=== PATIENT | female | born 1955 | race Caucasian/White ===

== ENCOUNTER 2022-08-09 13:22 | Emergency (ER) | payer OTHER, MEDICARE ==
[2022-08-09] MEDS ORDERED: DIPH,PERTUS(ACELL)TETVAC-LF 0.5 ML VIAL IM ONE (13:30)
[2022-08-09] MEDS ORDERED: TOPICAL SKIN ADHESIVE 1 EACH AMP TOPICAL ONE (13:31)
--- NOTE | 2022-08-09 13:33 | ED ---
General Adult HPI - General Stated complaint: Fall, Head Injury Time Seen by Provider: 08/09/22 13:24 Source: patient, EMS, RN notes reviewed Mode of arrival: EMS Limitations: no limitations - History of Present Illness Initial comments: Patient is a pleasant 66-year-old female presenting to the emergency department following fall. Patient was cleaning water in her bathroom and she slipped and fell. Patient did strike the right side of her face onto the tub. No loss of consciousness. No significant headache. 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 No weakness. No other area of injury or concern. Unclear last tetanus immunization. - Related Data Home Medications Medication Instructions Recorded Confirmed ALPRAZolam [Xanax] 2 mg PO BID 11/19/15 12/11/15 Albuterol Inhaler [Ventolin Hfa 1 - 2 puff INHALATION RT-DAILY 11/19/15 12/11/15 Inhaler] Cholecalciferol [Vitamin D3 (25 1,000 unit PO DAILY 11/19/15 12/11/15 Mcg = 1000 Iu)] Cyanocobalamin (Vitamin B-12) 1,000 mcg PO DAILY 11/19/15 12/11/15 [Vitamin B-12] Fluticasone Nasal [place] [Flonase 1 spray NASAL DAILY 11/19/15 12/11/15 Nasal Independence] Folic Acid 0.8 mg PO DAILY 11/19/15 12/11/15 Gabapentin [Neurontin] 300 mg PO TID 11/19/15 12/11/15 Venlafaxine HCl [Effexor] 37.5 mg PO BID 11/19/15 12/11/15 Vitamin E (Dl,Tocopheryl Acet) 1,000 unit PO DAILY 11/19/15 12/11/15 [Vitamin E] diphenhydrAMINE HCL [Benadryl] 25 mg PO HS PRN 11/19/15 12/11/15 tiZANidine [Zanaflex] 2 mg PO TID 11/19/15 12/11/15 raNITIdine HCL [Zantac] 75 mg PO DAILY PRN 12/03/15 12/11/15 Previous Rx's Medication Instructions Recorded Hydrocodone/Acetaminophen [Norcatur 1 - 2 each PO Q6HR PRN #90 tab 12/12/15 5-325] Allergies Allergy/AdvReac Type Severity Reaction Status Date / Time erythromycin base Allergy "STOPPED Verified 08/09/22 13:35 BREATHING" nickel Allergy Rash/Hives Verified 08/09/22 13:35 Penicillins Allergy Anaphylaxis Verified 08/09/22 13:35 Sulfa (Sulfonamide Allergy Anaphylaxis Verified 08/09/22 13:35 Antibiotics) ANESTHESIA Allergy SEVERE Uncoded 08/09/22 13:35 BRADYCARDIA DURING SURGERY WHICH WAS CANCELLED Review of Systems ROS Statement: Those systems with pertinent positive or pertinent negative responses have been documented in the HPI. ROS Other: All systems not noted in ROS Statement are negative. Constitutional: Denies: fever Eyes: Denies: eye pain ENT: Denies: ear pain Respiratory: Denies: cough Cardiovascular: Denies: chest pain Endocrine: Denies: fatigue Gastrointestinal: Denies: abdominal pain Genitourinary: Denies: dysuria Musculoskeletal: Denies: back pain Skin: Denies: rash Neurological: Denies: weakness Past Medical History Past Medical History: Fibromyalgia, GERD/Reflux, Hyperlipidemia Additional Past Medical History / Comment(s): WAS SCHEDULED FOR SURGERY ON 12/03/15. DURING SURGERY SHE HAD SEVERE BRADYCARDIA AND IT WAS DETERMINED TO CANCEL SURGERY. History of Any Multi-Drug Resistant Organisms: None Reported Past Surgical History: Section, Joint Replacement, Orthopedic Surgery Additional Past Surgical History / Comment(s): rt knee replacement, neck surgery, 12-11-15 decompressionl fusion c3-4,c6-7 Past Anesthesia/Blood Transfusion Reactions: No Reported Reaction Past Psychological History: Anxiety, Depression, Panic Disorder Past Alcohol Use History: Occasional Additional Past Alcohol Use History / Comment(s): QUIT: 3 WEEKS. SMOKED: 20 YRS PPD: LESS THAN A PACK. Past Drug Use History: None Reported - Past Family History Mother Family Medical History: Deep Vein Thrombosis (DVT) Father Family Medical History: Cancer Additional Family Medical History / Comment(s): lung cancer General Exam Limitations: no limitations General appearance: alert, in no apparent distress Head exam: Present: other (Right lateral eyebrow laceration) Eye exam: Present: normal appearance, PERRL, EOMI ENT exam: Present: normal oropharynx Neck exam: Present: normal inspection, tenderness (Minimal tenderness C6 region) Respiratory exam: Present: normal lung sounds bilaterally Cardiovascular Exam: Present: regular rate, normal rhythm GI/Abdominal exam: Present: soft. Absent: tenderness Extremities exam: Present: normal inspection, full ROM. Absent: tenderness Neurological exam: Present: alert, oriented X3, CN II-XII intact. Absent: motor sensory deficit Expanded Neurological exam: Present: protecting the airway Speech: Present: fluid speech Cranial nerves: EOM's Intact: Normal Motor strength exam: RUE: 5, LUE: 5, RLE: 5, LLE: 5 Eye Response: (4) open spontaneously Motor Response: (6) obeys commands Verbal Response: (5) oriented Psychiatric exam: Present: normal affect, normal mood Skin exam: Present: normal color Course Vital Signs 08/09/22 13:29 Temperature 97.5 F L Pulse Rate 94 Respiratory 17 Rate Blood Pressure 133/87 O2 Sat by Pulse 94 L Oximetry Procedures - Laceration Laceration #1 Consent Obtained: verbal consent Indication: laceration Site: face Size (cm): 2 Description: linear Depth: simple, single layer Pre-repair: wound explored, irrigated extensively Type of Sutures: other (Closed with skin adhesive) Patient Tolerated Procedure: well, no complications Medical Decision Making - Radiology Data Radiology results: report reviewed (Computed tomography scan of brain and cervical spine do not reveal acute abnormality) Disposition Clinical Impression: Fall, Facial laceration, Head contusion Disposition: HOME SELF-CARE Condition: Stable Instructions (If sedation given, give patient instructions): Head Injury (ED), Skin Adhesive Care (ED) Additional Instructions: Please do follow-up with primary care physician in the next couple days for recheck. [id number] Tylenol as needed. Return for confusion, weakness, increased pain, speech problems, worsening or change in symptoms or any other concerns. Is patient prescribed a controlled substance at d/c from ED?: No Referrals: Samantha Ayala MD [REFERRING] - 1-2 days Time of Disposition: 15:02
[2022-08-09 13:34] VITALS: TEMP 97.5
--- NOTE | 2022-08-09 14:40 | CT ---
EXAMINATION TYPE: CT brain rosy wo con DATE OF EXAM: 08/09/2022 COMPARISON: None HISTORY: Fell, hit right orbit, laceration CT DLP: 1730.4 mGycm, Automated exposure control for dose reduction was used. CONTRAST: Patient injected with 0 mL of Isovue 300. CT of the brain is performed utilizing 3 mm thick sections through the posterior fossa and 3 mm thick sections through the remaining calvarium. Study is performed within 24 hours of arrival to the hospital. No abnormal hyperdensity is present to suggest an acute intracranial hemorrhage. No mass lesion is evident. Physiologic basal ganglion calcification is present. There may be some minimal periventricular white matter hypodensity, likely on the basis of chronic wh ite matter ischemic changes. Ventricles and sulci are appropriate for the patient age. Paranasal sinuses and mastoid air cells within the [id number] are clear. Soft tissue swelling is over the right supraorbital region. No fractures are evident. Note is made of left septal deviation. IMPRESSIONS: 1. No acute intracranial process. 2. There may be some minimal chronic appearing periventricular white matter ischemic changes. Follow- up with MRI can be performed as clinically indicated. CT cervical spine. COMPARISON: None CT of the cervical spine is performed in the axial plane at 2 mm thick sections. Reconstructed image s in the coronal, and sagittal plane are reviewed on the computer. No acute fractures are evident. Prior anterior cervical fusion is evident. There is slight subtle kyphosis through the cervical spine. There is loss of disc height at residual discs. There is fusion between C3 and C7. No acute fractures are identified. Vertebral body heights are preserved. No spinal canal stenosis is evident. Uncovertebral joint hypertrophy contributes to foraminal narrowing. This appears severe at C3-4, C4-5 bilaterally. More moderate narrowing is present C5-6 C6-7 slightly greater on the right. IMPRESSIONS: 1. No acute osseous abnormality cervical spine. 2. Chronic changes post fusion discussed above.
[2022-08-09] MEDS ORDERED: ACET/COD 300 MG/30 MG STARTER PACK 6 TAB BTL PO STA (14:59)
[2022-08-09 16:03] VITALS: BP 127/76; PULSE 92; RESP 15
== END 2022-08-09 16:03 | disposition home or self-care (01) ==
LOC: EC 13:22
DX: S01.81XA Laceration without foreign body of other part of head, initial encounter (principal); F41.9 Anxiety disorder, unspecified; F32.A Depression, unspecified; Z87.891 Personal history of nicotine dependence; Z88.1 Allergy status to other antibiotic agents; Z91.048 Other nonmedicinal substance allergy status; Z88.4 Allergy status to anesthetic agent; Z88.0 Allergy status to penicillin; Z88.2 Allergy status to sulfonamides; W18.30XA Fall on same level, unspecified, initial encounter; Y93.E5 Activity, floor mopping and cleaning; Y92.002 Bathroom of unspecified non-institutional (private) residence as the place of occurrence of the external cause; Z23 Encounter for immunization
CPT/HCPCS: 12011; 70450; 72125; 90471; 90715; 99284